=== PATIENT | male | born 1995 | race Caucasian/White ===

== ENCOUNTER 2018-11-17 19:30 | Outpatient (CLI) | payer BC | END 2018-11-17 19:31 | disposition home or self-care (01) | LOC: SLEEPLAB 19:30 | PROVIDERS: ATTEND Nurse Practitioner Family | DX: G47.33 Obstructive sleep apnea (adult) (pediatric) (principal); I10 Essential (primary) hypertension; R06.83 Snoring; G47.10 Hypersomnia, unspecified; G47.00 Insomnia, unspecified | CPT/HCPCS: 95811 ==

== ENCOUNTER 2018-11-29 15:28 | Outpatient (CLI) | payer OTHER | END 2018-11-29 15:29 | disposition home or self-care (01) | LOC: DTY/OP 15:28 | PROVIDERS: ATTEND Specialist | DX: Z01.818 Encounter for other preprocedural examination (principal); E66.01 Morbid (severe) obesity due to excess calories | CPT/HCPCS: 97802 ==

== ENCOUNTER 2019-02-10 08:54 | Outpatient (CLI) | payer OTHER | END 2019-02-10 08:55 | disposition home or self-care (01) | LOC: DTY/OP 08:54 | PROVIDERS: ATTEND Specialist | DX: Z01.818 Encounter for other preprocedural examination (principal); E66.01 Morbid (severe) obesity due to excess calories | CPT/HCPCS: 97802 ==

== ENCOUNTER 2019-03-09 14:43 | Outpatient (CLI) | payer OTHER | END 2019-03-09 14:44 | disposition home or self-care (01) | LOC: DTY/OP 14:43 | PROVIDERS: ATTEND Specialist | DX: Z01.818 Encounter for other preprocedural examination (principal); E66.01 Morbid (severe) obesity due to excess calories | CPT/HCPCS: 97802 ==

== ENCOUNTER 2019-03-31 11:30 | Inpatient (IN) | payer BC ==
[2019-04-20] MEDS ORDERED: Fentanyl 250 MCG/5 ML VIAL ONE (06:22)
[2019-04-20] MEDS ORDERED: Bupivacaine/Epinephrine 0.25% 30 ML VIAL ONE (06:47)
[2019-04-20] MEDS ORDERED: Ketorolac Tromethamine 30 MG/ML VIAL ONE (06:57)
[2019-04-20] MEDS ORDERED: Scopolamine 1.5 mg/72 hour Patch ONE (06:57)
[2019-04-20] MEDS ORDERED: Lidocaine 2% Jelly 5 ML TUBE ONE (08:03)
[2019-04-20] MEDS ORDERED: SUGAMMADEX SODIUM 500 MG/5 ML VIAL ONE (08:16)
[2019-04-20] MEDS ORDERED: PROPOFOL 20 ML ONE (08:17)
[2019-04-20] MEDS ORDERED: Fentanyl 100 MCG/2 ML VIAL ONE (09:58)
[2019-04-20] MEDS ORDERED: Hydrocodone-Acetamin 15 ML UDCUP PO PRN (11:09)
[2019-04-20] MEDS ORDERED: Lisinopril 5 MG TAB PO SCH ×2 (11:09→11:30)
[2019-04-20] MEDS ORDERED: Ondansetron PF 4 MG/2 ML Vial IVP PRN (11:09)
[2019-04-20] MEDS ORDERED: diphenhydrAMINE 50 MG/ML VIAL IVP PRN (11:09)
[2019-04-20] MEDS ORDERED: Pantoprazole 40 MG VIAL IVP SCH ×2 (11:09→11:30)
[2019-04-20] MEDS ORDERED: hydrALAZINE 20 MG/ML VIAL SLOW IVP PRN (11:09)
[2019-04-20] MEDS ORDERED: Promethazine HCl 25 MG/ML VIAL IM PRN (11:09)
[2019-04-20] MEDS ORDERED: Dextrose 50% Abboject 50 ML SYRINGE SLOW IVP PRN (11:09)
[2019-04-20] MEDS ORDERED: Dextrose 5% in Water 1,000 ML IV PRN (11:09)
[2019-04-20] MEDS ORDERED: Morphine 2 MG/ML SYRINGE SLOW IVP PRN (11:20)
[2019-04-20] MEDS: Morphine 4 MG/ML VIAL SLOW IVP PRN ×3 (11:25→22:58)
[2019-04-20] MEDS: D5 1/2 NS w/20 mEq KCL 1,000 ML IV SCH ×2 (11:26→20:17)
[2019-04-20 11:49] VITALS: BMI 57.4
[2019-04-20] MEDS ORDERED: Acetaminophen 1,000 MG in Premix Bag 1 BAG IVPB SCH (12:00)
[2019-04-20] MEDS ORDERED: Ketorolac Tromethamine 30 MG/ML VIAL IVP SCH (12:00)
[2019-04-20] MEDS: Ketorolac Tromethamine 30 MG/ML VIAL IVP SCH ×2 (12:44→18:16)
[2019-04-20] MEDS: Acetaminophen 1,000 MG in Premix Bag 1 BAG IVPB SCH ×2 (12:44→18:17)
[2019-04-20] MEDS ORDERED: Enoxaparin Sodium 40 MG/0.4 ML SYRINGE SC SCH (21:00)
--- NOTE | 2019-04-20 23:30 | OP ---
DATE OF PROCEDURE: 04/20/2019 PREOPERATIVE DIAGNOSIS: Morbid obesity. POSTOPERATIVE DIAGNOSIS: Morbid obesity. OPERATION PERFORMED: Laparoscopic vertical sleeve gastrectomy using the ViSiGi device. ANESTHESIA: General endotracheal. INDICATIONS: The patient is a 23-year-old morbidly obese white male. At my request, he had lost weight down to below 400 pounds in preparation for surgery. He has undergone extensive preoperative evaluation and education, presents this time for sleeve gastrectomy. DESCRIPTION OF OPERATION: Informed consent was obtained. The patient was taken to the operating room where general endotracheal anesthesia was obtained with the patient in supine position. Abdomen was prepped with ChloraPrep and draped in sterile fashion. Local anesthetic was infiltrated and 5 mm supraumbilical incision was created through which Veress needle was passed to the peritoneal cavity and pneumoperitoneum established using carbon dioxide up to a pressure of 15 mmHg. A 5 mm trocar port was passed through this same incision. Laparoscopic camera was passed through this port. Under direct vision, 4 additional ports were placed including bilateral 5 mm subcostal ports, a 12 mm right paramedian port and a 15 mm left paramedian port. A 5 mm epigastric incision was created through which Dave retractor was passed into the abdominal cavity and used to retract the left lobe of the liver. The patient was placed into reverse Trendelenburg position. The ViSiGi device was advanced within the stomach and used to decompress this. The pylorus was identified and beginning 4 cm proximal to the pylorus, the omentum and vascular tissue along the greater curvature was divided using the LigaSure in an ascending fashion up to the angle of His. All posterior adhesions were mobilized. The short gastric vessels were carefully divided and then hemostasis was maintained using the LigaSure. Once this was completely mobilized, the ViSiGi was carefully positioned at the level of the pylorus and placed to suction, which was clearly defining the lesser curvature of the stomach. The gastrectomy was then performed using a series of fires of the [place] stapler using a green load followed by a gold load and a series of blue loads until completion of the gastrectomy. The ViSiGi along the lesser curvature was used as a size 36 bougie to guide in the gastric division. Care was taken to avoid narrowing the incisura or the gastroesophageal junction. The integrity of the staple line was then assessed by insufflating gas through the ViSiGi while irrigating along the staple line. There was no evidence of an air leak. There was no evidence of bleeding along the staple line. The resected stomach was then removed through the 15 mm port and the fascia was closed with 0 Vicryl suture using a GraNee needle. I then closed the 12 mm port also using the GraNee needle and 0 Vicryl suture. The Dave retractor was removed. All ports and instruments were removed under direct vision. All irrigant was aspirated. Pneumoperitoneum was carefully evacuated. 0.25% Marcaine with epinephrine was infiltrated into each port site. Skin edges approximated with 4-0 Monocryl subcuticular suture. Dermabond was placed externally. There were no complications. The patient tolerated the procedure well and was taken to recovery room in stable condition. FINDINGS: The patient had no intraabdominal adhesions. Other than copious fat involving the omentum and retroperitoneum, there were no other anatomic abnormalities. Surgery was performed essentially without blood loss. There were no complications and patient tolerated the procedure well. Job ID: [id number]
[2019-04-21] MEDS: Acetaminophen 1,000 MG in Premix Bag 1 BAG IVPB SCH ×2 (00:13→06:33)
[2019-04-21] MEDS: Ketorolac Tromethamine 30 MG/ML VIAL IVP SCH ×2 (00:13→06:32)
[2019-04-21 04:28] VITALS: TEMP 98
[2019-04-21] MEDS: D5 1/2 NS w/20 mEq KCL 1,000 ML IV SCH (05:20)
[2019-04-21 06:28] LABS: #Lymphocytes 2.1 thou/uL (1.20-3.40); #Monocytes 1.1 thou/uL (0.11-0.59); #Neutrophils 7.7 thou/uL (1.40-6.50); %Basophils 0.2 % (0.0-1.0); %Eosinophils 0.4 % (0.0-10.0); %Lymphocytes 19.3 % (21.0-51.0); %Monocytes 10.4 % (0.0-10.0); %Neutrophils 69.8 % (42.0-75.0); Hemoglobin 12.7 g/dL (14.0-18.0); Mean Corpuscular HGB CONC 32.1 g/dL (32.0-36.0); Mean Corpuscular Hemoglobin 26.6 pg (27.0-31.0); Mean Corpuscular Volume 82.9 fL (78.0-98.0); Mean Platelet Volume 7.7 fL (7.4-10.4); Platelet Count 281 thou/uL (130-400); RBC Distribution Width 13.2 % (11.5-14.5); Red Blood Cell (RBC) Count 4.76 mill/uL (4.70-6.10)
[2019-04-21 06:48] LABS: Anion Gap 13 mmol/L (10-20); BUN (Urea Nitrogen) 8 mg/dL (8.9-20.6); Calc. Creatinine Clearance 348 mL/min (70-130); Calcium 9.1 mg/dL (7.8-10.44); Carbon Dioxide 22 mmol/L (22-29); Chloride 107 mmol/L (98-107); Estimated GFR-MDRD Greater than 90; Glucose 99 mg/dL (70-105); Sodium 138 mmol/L (136-145)
--- NOTE | 2019-04-21 07:28 | PDOC.GSPN ---
Surgery Progress Note: Subj - Subjective Narrative: Mr. Rincon is a 23 y/o male who is 1 day post-op laparoscopic vertical sleeve gastrectomy for morbid obesity. He states that he is "doing good" and that starting around 10-11 pm last night his abdominal pain improved considerably compared to earlier in the day. His pain overnight and currently is described as a diffuse abdominal pain, 3-4/10, "sore", and is well controlled on current medications. Pt's appetite is improving and states that he is tolerating the clear liquids diet having eaten broth/jello for dinner. He is voiding without difficulty, but has not had a bowel movement or flatulence yet. Pt does endorse periodic belching but states that it is not troubling. Pt is ambulating and doing laps around the floor without assistance or SOB. Was originally on 2 L/min O2 via NC, but switched to RA last night and sats remain between 94-95%. Mr. Rincon states that he has not been using his incentive spirometry, so I instructed him on proper use and encouraged him to use as often as possible (at least 1/hour). Denies hematemesis, SOB, CP, palpitations, N/V/D, lightheadness, dizziness, fever, any peritonitis symptoms. Surgery Progress Note: Obj - Vital signs Vital signs: Vital Signs - Most Recent Temp Pulse Resp BP Pulse Ox 98.0 F 46 L 16 106/61 94 L 04/21/19 04:28 04/21/19 04:28 04/21/19 04:28 04/21/19 04:28 04/21/19 04:28 - Physical Exam General: no distress, obese, other (Pt was sleeping comfortably, lying flat in bed.) ENT: normal mucosa, other (No sclera icterus) Cardiovascular: regular rate and rhythm, no murmur Respiratory: clear to auscultation, normal respiratory effort Abdomen: soft, decreased bowel sounds, appropriately tender, other (six surgical port sites are present with mild erythema, but without warming, edema, discharge - healing well.) Psychiatric: other (A/O X3, speech normal) Wound: other (See above.) Surgery Progress Note: Results - Labs Result Diagrams: 04/21/19 06:05 04/21/19 06:05 Lab results: Laboratory Results - last 24 hr 04/21/19 04/21/19 06:05 06:05 WBC 11.0 H RBC 4.76 Hgb 12.7 L Hct 39.5 L MCV 82.9 MCH 26.6 L MCHC 32.1 RDW 13.2 Plt Count 281 MPV 7.7 Neutrophils % 69.8 Lymphocytes % 19.3 L Monocytes % 10.4 H Eosinophils % 0.4 Basophils % 0.2 Neutrophils # 7.7 H Lymphocytes # 2.1 Monocytes # 1.1 H Eosinophils # 0.0 Basophils # 0.0 Sodium 138 Potassium 4.0 Chloride 107 Carbon Dioxide 22 Anion Gap 13 BUN 8 L Creatinine 0.84 Estimated GFR (MDRD) Greater than 90 Glucose 99 Calcium 9.1 Surgery Progress Note: A/P - Problem (1) S/P laparoscopic sleeve gastrectomy Current Visit: Yes Code(s): Z98.84 - BARIATRIC SURGERY STATUS Status: Acute - Plan Plan: Mr. Rincon is a 23 y/o male post-op day 1 from laparoscopic sleeve gastrectomy for morbid obesity. He is recovering well today, tolerating clear liquid diet, voiding without difficulty, and ambulating without dizziness, SOB, or assistance , but has not yet had a bowel movement or flatulence, and endorses mild belching. He does have leukocytosis with neutrophilia likely secondary to inflammation from his surgery. Will monitor with daily CBC for return to normal limits. Pt has become bradycardic and blood pressure has dropped from 148/84 at 2000 last night to 106/61 this morning. Believe these changes are due to Morphine that was administered at 11pm last night and since pt denies any lightheadedness, dizziness, we will continue to monitor vitals. Plan is to advance his diet today, continue pain meds, and remain on room air assuming sats remain >92%. He has been encouraged to continue walking, and to use spirometry at least 1/hour.
[2019-04-21 07:32] VITALS: BP 122/74
[2019-04-21] MEDS ORDERED: Pantoprazole 40 MG VIAL IVP SCH (09:00)
[2019-04-21] MEDS ORDERED: Lisinopril 5 MG TAB PO SCH (09:00)
[2019-04-21] MEDS ORDERED: Hydrocodone-Acetamin 15 ML UDCUP PO PRN (13:00)
== END 2019-04-21 14:16 | disposition home or self-care (01) | DRG 621 ==
LOC: SURG A 04-20 06:04
PROVIDERS: ADMIT Specialist; ATTEND Specialist
PROC: 0DB64Z3 Excision of Stomach, Percutaneous Endoscopic Approach, Vertical (ICD-10-PCS; principal; 2019-04-20)
DX: E66.01 Morbid (severe) obesity due to excess calories (principal); Z68.43 Body mass index [BMI] 50.0-59.9, adult; Z88.8 Allergy status to other drugs, medicaments and biological substances; I10 Essential (primary) hypertension; J45.909 Unspecified asthma, uncomplicated; G47.00 Insomnia, unspecified
CPT/HCPCS: 36415; 80048; 85025; 88307; 88312; 94760; C9113; J0131; J1650; J1885; J2270; J2405; J2704; J3010

== ENCOUNTER 2019-04-12 11:38 | Outpatient (CLI) | payer BC ==
[2019-04-12 13:26] LABS: #Basophils 0.1 thou/uL (0.0-0.2); #Eosinphils 0.3 thou/uL (0.0-0.7); #Monocytes 0.8 thou/uL (0.11-0.59); #Neutrophils 5.5 thou/uL (1.40-6.50); %Basophils 1.7 % (0.0-1.0); %Eosinophils 2.9 % (0.0-10.0); %Lymphocytes 23.1 % (21.0-51.0); %Monocytes 9.5 % (0.0-10.0); %Neutrophils 62.8 % (42.0-75.0); Hemoglobin 14.1 g/dL (14.0-18.0); Mean Corpuscular HGB CONC 33.3 g/dL (32.0-36.0); Mean Corpuscular Hemoglobin 27.1 pg (27.0-31.0); Mean Corpuscular Volume 81.3 fL (78.0-98.0); Mean Platelet Volume 7.7 fL (7.4-10.4); Platelet Count 339 thou/uL (130-400); RBC Distribution Width 13.2 % (11.5-14.5); White Blood Cell (WBC) Count 8.7 thou/uL (4.8-10.8)
[2019-04-12 13:46] LABS: Anion Gap 15 mmol/L (10-20); BUN (Urea Nitrogen) 13 mg/dL (8.9-20.6); Calc. Creatinine Clearance 0 mL/min (70-130); Calcium 9.5 mg/dL (7.8-10.44); Carbon Dioxide 20 mmol/L (22-29); Chloride 106 mmol/L (98-107); Estimated GFR-MDRD Greater than 90; Glucose 71 mg/dL (70-105); Potassium 4.3 mmol/L (3.5-5.1); Sodium 137 mmol/L (136-145)
== END 2019-04-12 11:39 | disposition home or self-care (01) ==
LOC: LABBT 11:38
PROVIDERS: ATTEND Specialist
DX: Z01.818 Encounter for other preprocedural examination (principal); E66.01 Morbid (severe) obesity due to excess calories
CPT/HCPCS: 80048; 85025; 93005; 93010

== ENCOUNTER 2019-07-07 09:13 | Outpatient (CLI) | payer BC ==
--- NOTE | 2019-07-07 13:42 | RAD ---
UPPER GI: INDICATION: Chronic nausea. COMPARISON: Prior CT of the abdomen and pelvis dated 12/28/2012. TECHNIQUE: Thin barium, thick barium and effervescent crystals were utilized for double contrast esophagram. 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 There was a small hiatal hernia demonstrated. Moderate gastroesophageal reflux was demonstrated up to the mid thoracic spine during the examination. The esophagus demonstrated normal mucosal pattern and contour. There was norm al esophageal motility. There is postsurgical change of a gastroplasty. The visualized stomach and small bowel otherwise appeared within normal limits. Total fluoroscopic time was 2.7 minutes. Total e xposure was 68.5 uGy*^cm2. IMPRESSION: 1. Small hiatal hernia. 2. Moderate gastroesophageal reflux. 3. Postsurgical change of a prior gastroplasty. Transcribed Date/Time: 07/07/2019 1:50 PM
== END 2019-07-07 09:14 | disposition home or self-care (01) ==
LOC: RAD 09:13
PROVIDERS: ATTEND Specialist
DX: R11.0 Nausea (principal); K44.9 Diaphragmatic hernia without obstruction or gangrene; K21.9 Gastro-esophageal reflux disease without esophagitis; Z98.890 Other specified postprocedural states
CPT/HCPCS: 74247

== ENCOUNTER 2019-07-13 09:47 | Outpatient (CLI) | payer BC ==
--- NOTE | 2019-07-13 13:00 | CT ---
EXAM: CT ABDOMEN AND PELVIS HISTORY: Emesis. Symptoms times one and half weeks. Gastric sleeve in March 2019 COMPARISON: 12/28/2012 Procedure: Multiple contiguous axial images were obtained and a CT of the abdomen and pelvis with IV contrast. C oronal reformats were performed. FINDINGS: Lower Chest: within normal limits. Vessels: Normal caliber Heart: Normal heart size Abdomen: Portal vein:Patent Gallbladder: No calcified gallstones. Normal caliber wall. Liver: within normal limits. Pancreas: within normal limits. Spleen: within normal limits. Adrenals: within normal limits. Kidneys: Symmetric enhancement. No obstructive uropathy. Peritoneum: No ascites or free air, no fluid collection. Bowel: There is evidence of previous bariatric surgical change. No evidence of obstruction, leak or e xtravasation at the operative site. No evidence of inflammatory change along the lesser curvature the greater curvature of the stomach. Slightly limited evaluation due to beam attenuation artifact fr om retained barium in the transverse colon. No evidence of bowel obstruction. Ileocecal junction is unremarkable. Normal caliber appendix. Scattered fecal material in a nondistended, nondilated colon. Mesentery and Retroperitoneum: No enlarged mesenteric or retroperitoneal lymph nodes. Abdominal Wall: within normal limits. Pelvis: Reproductive Organs: Reproductive organs are unremarkable. Pelvis: No mass, lymphadenopathy, free air or free fluid. Bladder: within normal limits. Bones: within normal limits. IMPRESSION: 1. Findings compatible with previous bariatric surgical change. No evidence of associated obstruction , leak or extravasation. 2. No evidence of acute intraabdominal\pelvic abnormality.
[2019-07-13] MEDS ORDERED: Iopamidol 370 76% 100 ML VIAL ONE (13:36)
== END 2019-07-13 09:48 | disposition home or self-care (01) ==
LOC: CT 09:47
PROVIDERS: ATTEND Specialist
DX: R11.10 Vomiting, unspecified (principal); Z98.890 Other specified postprocedural states
CPT/HCPCS: 36415; 74177; 80053; 85025; Q9967

== ENCOUNTER 2019-07-14 08:08 | Outpatient (CLI) | payer BC ==
--- NOTE | 2019-07-14 11:21 | NM ---
NUCLEAR MEDICINE HEPATOBILIARY SCAN: DATE: 07/14/2019 HISTORY: 23-year-old male with nausea and vomiting TECHNIQUE: First Kinevac (CCK analog) dose: 2 mcg. Technetium 99m-mebrofenin dose: 4.9 mCi. Second Kinevac (CCK analog) dose: 2 mcg. First dose of Kinevac injected. Next, Tc 99- mebrofenin injected IV. Dynamic anterior scintigraphy of abdomen for one hour. Second dose of Kinevac injected. Additional dynamic anterior scintigraphy of abdomen. Counts obtained over the gallbladder. Time-activity curve generated. FINDINGS: Faint visualization of liver. Gallbladder begins to appear at appropriate time and fills normally. [place] wel activity visualized at appropriate time. After second dose of CCK, gallbladder ejection fraction is minimal, approximately 4%. IMPRESSION: Abnormally very low gallbladder ejection fraction of approximately 4% is evidence for gallbladder dys function.
== END 2019-07-14 08:09 | disposition home or self-care (01) ==
LOC: NM 08:08
PROVIDERS: ATTEND Specialist
DX: R11.10 Vomiting, unspecified (principal)
CPT/HCPCS: 78227; A9537

== ENCOUNTER 2019-07-14 12:25 | Day surgery (SDC) | payer BC ==
[~2019-07-14 12:25] MED LIST: Dexamethasone 20 MG/5 ML VIAL ONE; Glycopyrrolate 0.2 MG/ML 5 ML SYRINGE ONE; Ketorolac Tromethamine 30 MG/ML VIAL ONE; Lidocaine 1% PF 5 ML VIAL ONE; Ondansetron PF 4 MG/2 ML Vial ONE; PROPOFOL 200 MG/20 ML VIAL ONE; Rocuronium Bromide 10 MG/ML (10ML VIAL) ONE; ePHEDrine/0.9% NaCl/PF SYRINGE 50 mg/10 ml ONE
[2019-07-14] MEDS ORDERED: Sodium Chloride 0.9% 1,000 ML IV SCH (12:45)
[2019-07-14] MEDS ORDERED: Multivitamins, Adult 10 ML, Thiamine HCl 100 MG, Folic Acid 1 MG in Dextrose 5 %-0.45 %... IV SCH (12:45)
[2019-07-14] MEDS ORDERED: Ketorolac Tromethamine 30 MG/ML VIAL ONE (14:09)
[2019-07-14] MEDS ORDERED: Fentanyl 250 MCG/5 ML VIAL ONE (14:42)
[2019-07-14] MEDS ORDERED: Lidocaine 2% w/Epinephrine 1:200K 20 ML VIAL ONE (14:50)
[2019-07-14] MEDS ORDERED: Bupivacaine 0.25% HCL 30 ML VIAL ONE (14:50)
[2019-07-14] MEDS ORDERED: Meperidine HCl/PF 25 MG/ML VIAL SLOW IVP PRN (15:28)
[2019-07-14] MEDS ORDERED: Promethazine HCl 25 MG/ML VIAL SLOW IVP PRN (15:28)
[2019-07-14] MEDS ORDERED: Ondansetron HCl/PF 4 MG/2 ML Vial IVP PRN (15:28)
[2019-07-14] MEDS ORDERED: HYDROmorphone 2 MG/ML VIAL SLOW IVP PRN (15:28)
[2019-07-14] MEDS ORDERED: Fentanyl 100 MCG/2 ML VIAL ONE (16:26)
[2019-07-14] MEDS ORDERED: Promethazine HCl 25 MG/ML VIAL IM PRN (17:13)
[2019-07-14] MEDS ORDERED: hydrALAZINE 20 MG/ML VIAL SLOW IVP PRN (17:13)
[2019-07-14] MEDS ORDERED: Dextrose 50% Abboject 50 ML SYRINGE SLOW IVP PRN (17:13)
[2019-07-14] MEDS ORDERED: Dextrose 5% in Water 1,000 ML IV PRN (17:13)
[2019-07-14] MEDS ORDERED: Morphine 2 MG/ML SYRINGE SLOW IVP PRN (17:13)
[2019-07-14] MEDS ORDERED: traMADol HCl 50 MG TAB PO PRN ×2 (17:13)
[2019-07-14] MEDS ORDERED: Calcium Carbonate 500 MG ChewTAB PO PRN (17:13)
[2019-07-14] MEDS ORDERED: Morphine 4 MG/ML VIAL SLOW IVP PRN (17:13)
[2019-07-14] MEDS ORDERED: Mag-Al 1200 mg/1200 mg/30 ML UDCUP PO PRN (17:13)
[2019-07-14] MEDS ORDERED: Ondansetron PF 4 MG/2 ML Vial IVP PRN (17:13)
[2019-07-14 17:42] VITALS: BMI 43.3
[2019-07-14] MEDS ORDERED: Multivitamins, Adult 10 ML, Folic Acid 1 MG, Thiamine HCl 100 MG in Dextrose 5 %-0.45 %... IV SCH (18:00)
[2019-07-14] MEDS: Ketorolac Tromethamine 30 MG/ML VIAL IVP SCH ×2 (18:44→23:20)
[2019-07-14] MEDS: Sodium Chloride 0.9% 1,000 ML IV SCH (18:44)
[2019-07-14] MEDS: Famotidine/PF 20 mg/2ml Vial SLOW IVP SCH (19:39)
[2019-07-14] MEDS: Famotidine 20 MG TAB PO SCH (20:56)
[2019-07-15] MEDS: Ketorolac Tromethamine 30 MG/ML VIAL IVP SCH ×2 (05:28→13:56)
[2019-07-15 06:33] LABS: #Basophils 0.1 thou/uL (0.0-0.2); #Lymphocytes 0.9 thou/uL (1.20-3.40); #Monocytes 0.7 thou/uL (0.11-0.59); #Neutrophils 7.3 thou/uL (1.40-6.50); %Basophils 0.8 % (0.0-1.0); %Eosinophils 0.2 % (0.0-10.0); %Lymphocytes 9.9 % (21.0-51.0); %Monocytes 8.1 % (0.0-10.0); Hemoglobin 14.3 g/dL (14.0-18.0); Mean Corpuscular HGB CONC 33.5 g/dL (32.0-36.0); Mean Corpuscular Hemoglobin 27.6 pg (27.0-31.0); Mean Corpuscular Volume 82.4 fL (78.0-98.0); Mean Platelet Volume 8.1 fL (7.4-10.4); Platelet Count 313 thou/uL (130-400); RBC Distribution Width 13.5 % (11.5-14.5); Red Blood Cell (RBC) Count 5.17 mill/uL (4.70-6.10)
[2019-07-15 06:54] LABS: ALT (SGPT) 82 U/L (8-55); AST (SGOT) 60 U/L (5-34); Albumin 3.8 g/dL (3.5-5.0); Alkaline Phosphatase 66 U/L (40-110); Anion Gap 14 mmol/L (10-20); BUN (Urea Nitrogen) 8 mg/dL (8.9-20.6); Calc. Creatinine Clearance 307 mL/min (70-130); Calcium 9.2 mg/dL (7.8-10.44); Carbon Dioxide 20 mmol/L (22-29); Chloride 103 mmol/L (98-107); Estimated GFR-MDRD Greater than 90; Globulin 3.3 g/dL (2.4-3.5); Glucose 88 mg/dL (70-105); Lipase 31 U/L (8-78); Potassium 3.9 mmol/L (3.5-5.1); Protein, Total 7.1 g/dL (6.0-8.3); Sodium 133 mmol/L (136-145)
[2019-07-15] MEDS: Sodium Chloride 0.9% 1,000 ML IV SCH (08:44)
[2019-07-15] MEDS: Famotidine 20 MG TAB PO SCH (08:45)
[2019-07-15] MEDS: Famotidine/PF 20 mg/2ml Vial SLOW IVP SCH (08:47)
[2019-07-15] MEDS ORDERED: Cyanocobalamin 1000 MCG/ML VIAL IM SCH (09:30)
--- NOTE | 2019-07-15 10:02 | DIS ---
DATE OF ADMISSION: 07/14/2019 DATE OF DISCHARGE: 07/15/2019 ADMIT DIAGNOSES: 1. Acute cholecystitis. 2. Recent laparoscopic gastric sleeve. DISCHARGE DIAGNOSES: 1. Acute cholecystitis. 2. Recent laparoscopic gastric sleeve. PROCEDURES PERFORMED: Laparoscopic cholecystectomy by Dr. Warner without complication. DISCHARGE CONDITION: Condition on discharge improved. The staff is Dr. Warner. HOSPITAL COURSE: The patient is doing well. He was given IV thiamine and his thiamine level was checked before discharge. Dr. Warner will need to follow up on those labs when he sees him back in the office. He was about due for a 3-month labs anyway. Job ID: [id number]
[2019-07-15 11:37] LABS: Vitamin D, 25 Hydroxy 17.3 ng/ml (> 30.0)
[2019-07-15 11:43] LABS: Ferritin 386.96 ng/mL (22-322)
[2019-07-15 11:44] VITALS: BP 101/66; TEMP 97.5
[2019-07-15] MEDS ORDERED: Multivitamins, Adult 10 ML, Folic Acid 1 MG, Thiamine HCl 100 MG in Dextrose 5 %-0.45 %... IV SCH (12:00)
--- NOTE | 2019-07-15 21:45 | OP ---
DATE OF PROCEDURE: 07/14/2019 PREOPERATIVE DIAGNOSIS: Biliary dyskinesia. POSTOPERATIVE DIAGNOSIS: Biliary dyskinesia. PROCEDURE PERFORMED: Laparoscopic cholecystectomy. ANESTHESIA: General endotracheal. INDICATIONS: Patient is a 23-year-old morbidly obese white male. He is approximately three months status post laparoscopic sleeve gastrectomy. Over the past month, he has had progressive problems with nausea and vomiting. He has been evaluated with an upper GI endoscopy, an upper GI swallow, and a CT scan, none of which revealed any substantial abnormality. HIDA scan was obtained yesterday revealing only a 4% ejection fraction and reproduction of right upper quadrant abdominal pain. I have recommended laparoscopic cholecystectomy in hopes of alleviating his current symptoms. DESCRIPTION OF OPERATION: Informed consent was obtained. Patient was taken to the operating room, where general endotracheal anesthesia obtained, patient in supine position. Abdomen was prepped with ChloraPrep and draped in a sterile fashion. Local anesthetic was infiltrated using a combination of Marcaine and lidocaine with epinephrine. A 5 mm incision was created at the supraumbilical incision used previously on his gastrectomy. Pneumoperitoneum was established with carbon dioxide using a Veress needle. A 5 mm port placed and camera passed through this. Under direct vision, I placed 3 additional ports including an epigastric port and two right upper quadrant ports. I was able to use one of the other prior laparoscopic port sites. Patient was placed in reverse Trendelenburg. There were no adhesions to the gallbladder. It had a fairly normal appearance with a little distention. Cholecystectomy was performed in a normal fashion, dissecting the cystic duct and cystic artery completely and dividing them between clips leaving 2 on the side to remain within the abdomen. Gallbladder was dissected out of the gallbladder fossa using electrocautery. There was noted to be thick sludgy dark appearing bile, typical of dyskinesia and gallbladder sludge. The gallbladder was removed through the supraumbilical port site. Fascia was closed with 0 Vicryl suture using a GraNee needle. All ports and instruments were removed under direct vision. Pneumoperitoneum was carefully evacuated. A 0.25% Marcaine with epinephrine was infiltrated at each port site. Skin edges approximated with 4-0 Monocryl subcuticular suture. Dermabond was placed externally. There were no complications. Patient tolerated the procedure well and was taken to recovery in stable condition. Job ID: [id number]
== END 2019-07-15 14:05 | disposition home or self-care (01) ==
LOC: SDC 12:25 → SURG A 17:11 → SDC 07-15 14:05
PROVIDERS: ATTEND Specialist
PROC: 0FT44ZZ Resection of Gallbladder, Percutaneous Endoscopic Approach (ICD-10-PCS; principal; 2019-07-15)
DX: K81.0 Acute cholecystitis (principal); K82.8 Other specified diseases of gallbladder; I10 Essential (primary) hypertension; E66.01 Morbid (severe) obesity due to excess calories; Z68.41 Body mass index [BMI] 40.0-44.9, adult; Z79.899 Other long term (current) drug therapy; Z88.1 Allergy status to other antibiotic agents; Z98.84 Bariatric surgery status
CPT/HCPCS: 36415; 80053; 82306; 82607; 82728; 83690; 84425; 85025; 88304; J0131; J0690; J1100; J1885; J2001; J2405; J2704; J3010; J3411; J3420; J7042; S0020